=== PATIENT | male | born 1930 | race Caucasian/White ===

== ENCOUNTER 2017-06-17 11:43 | Inpatient (IN) | payer MEDICARE, OTHER ==
[~2017-06-17] VITALS: Ht 185.4 cm; Wt 95.0 kg
[2017-06-17 12:46] LABS: BASOPHILS % (AUTO) 0.5 % (0-1); EOSINOPHILS # (AUTO) 0.2 X10'3 (0-0.9); EOSINOPHILS % (AUTO) 3.4 % (0-6); HEMATOCRIT 42.1 % (42.0-52.0); HEMOGLOBIN 14.3 g/dl (14.0-17.9); LYMPHOCYTES # (AUTO) 0.7 X10'3 (1.1-4.8); LYMPHOCYTES % (AUTO) 13.1 % (21-51); MEAN CORPUSCULAR HEMOGLOBIN 35.6 PG (27.0-31.0); MEAN CORPUSCULAR HGB CONC 33.9 % (33.0-36.5); MEAN CORPUSCULAR VOLUME 105.2 FL (78-98); MEAN PLATELET VOLUME 7.2 FL (7.4-10.4); MONOCYTES # (AUTO) 0.5 X10'3 (0-0.9); MONOCYTES % (AUTO) 9.4 % (2-12); NEUTROPHILS # (AUTO) 3.9 X10'3 (1.8-7.7); NEUTROPHILS % (AUTO) 73.6 % (42-75); PLATELET COUNT 164 X10'3 (140-440); RED CELL DISTRIBUTION WIDTH 13.2 % (11.5-14.5); WHITE BLOOD COUNT 5.3 X10'3 (4.5-11.0)
[2017-06-17 12:57] LABS: PARTIAL THROMBOPLASTIN TIME 32 SECONDS (22-32); PROTHROMBIN TIME 10.3 SECONDS (9.0-12.0)
[2017-06-17 13:11] LABS: ALANINE AMINOTRANSFERASE 24 U/L (12-78); ALBUMIN 3.7 G/DL (3.4-5.0); ALBUMIN/GLOBULIN RATIO 1.1 (1.1-1.5); ALKALINE PHOSPHATASE 75 IU/L (46-116); ANION GAP 9 (8-16); ASPARTATE AMINO TRANSFERASE 26 U/L (10-37); BILIRUBIN,TOTAL 0.6 MG/DL (0.1-1.0); BLOOD UREA NITROGEN 24 MG/DL (7-18); CALCIUM 9.4 MG/DL (8.5-10.1); CHLORIDE 113 MMOL/L (99-107); CREATININE 1.26 MG/DL (0.60-1.10); GLUCOSE 88 MG/DL (70-104); MAGNESIUM 2.3 MG/DL (1.5-2.4); PHOSPHORUS 3.2 MG/DL (2.3-4.5); POTASSIUM 3.9 MMOL/L (3.5-5.1); SODIUM 151 MMOL/L (135-145); TOTAL CARBON DIOXIDE 29.3 MMOL/L (24-32); TOTAL PROTEIN 7.2 G/DL (6.4-8.2); eGFR 54 ML/MIN
[2017-06-17 13:19] LABS: ETHANOL < 0.010 GM/DL (0.0-0.010)
[2017-06-17] MEDS: normal saline 1000ml 1,000 ML IV SCH ×3 (13:28→20:32)
[2017-06-17] MEDS ORDERED: haloperidol 1mg tablet PO ONE (14:35)
[2017-06-17] MEDS ORDERED: CHLO25CA10 PO (14:37)
[2017-06-17] MEDS ORDERED: vancomycin inj 1,000 MG in normal saline 250ml IV soln 250 ML IV STA (16:18)
[2017-06-17] MEDS: vancomycin/NS 1 GM ADD-VANTAGE 250 ML IV SCH ×2 (16:35→16:43)
[2017-06-17] MEDS ORDERED: haloperidol lactate 5mg/ml inj IM ONE (16:55)
[2017-06-17 17:50] LABS: CLARITY,URINE CLEAR (Clear); COLOR,URINE YELLOW (Yellow); GLUCOSE, URINE NEGATIVE (Neg); KETONES,URINE 15 mg/dl (Neg); LEUKOCYTE ESTERASE ,URINE NEGATIVE (Neg); NITRITES, URINE NEGATIVE (Neg); OCCULT BLOOD,URINE NEGATIVE (Neg); PH,URINE 5.5 (4.8-8.0); PROTEIN,URINE NEGATIVE (Neg); UROBILINOGEN,URINE 0.2 E.U/dL (0.2-1.0)
[2017-06-17 17:51] LABS: UA COLLECTION TYPE STRAIGHT CATH
[2017-06-17] MEDS ORDERED: thiamine inj. 100 MG, MVI, adult No.4 with vit. K 10 ML in dextrose 5% water 500ml 489 ML IV SCH ×3 (18:35)
[2017-06-17] MEDS ORDERED: thiamine 100mg/ml 2ml inj. IV ONE (18:40)
[2017-06-17] MEDS ORDERED: thiamine inj. 100 MG, MVI, adult No.4 with vit. K 10 ML in dextrose 5% water 500ml 489 ML IV ONE ×3 (18:40)
[2017-06-17] MEDS ORDERED: magnesium hydroxide 30ml (MOM) UD suspension PO PRN (18:55)
[2017-06-17] MEDS ORDERED: aspirin 325mg tablet PO ONE (18:55)
[2017-06-17] MEDS ORDERED: ondansetron/PF 4mg/2ml inj IV PRN (18:55)
[2017-06-17] MEDS ORDERED: mag hydrox/Alum hydrox/simeth 30ml oral suspension PO PRN (18:55)
[2017-06-17] MEDS ORDERED: acetaminophen 325mg tablet PO PRN ×2 (18:55)
[2017-06-17 20:00] VITALS: BP 141/87
[2017-06-17] MEDS: folic acid 1mg tablet PO SCH (20:30)
[2017-06-17] MEDS ORDERED: LORazepam 2 mg/ml vial IV ONE ×3 (22:00→22:35)
[2017-06-18] VITALS: BP 142/79
[2017-06-18] MEDS: normal saline 1000ml 1,000 ML IV SCH ×3 (01:25→07:35)
[2017-06-18 02:04] LABS: ALBUMIN 3.2 G/DL (3.4-5.0); ANION GAP 8 (8-16); BLOOD UREA NITROGEN 22 MG/DL (7-18); BUN/CREATININE RATIO 22.7 (5.4-32.0); CALCIUM 8.3 MG/DL (8.5-10.1); CHLORIDE 114 MMOL/L (99-107); CREATININE 0.97 MG/DL (0.60-1.10); GLUCOSE 80 MG/DL (70-104); MAGNESIUM 1.8 MG/DL (1.5-2.4); POTASSIUM 3.1 MMOL/L (3.5-5.1); SODIUM 148 MMOL/L (135-145); TOTAL CARBON DIOXIDE 25.9 MMOL/L (24-32); eGFR 74 ML/MIN
[2017-06-18 02:13] LABS: BASOPHILS % (AUTO) 0.5 % (0-1); EOSINOPHILS # (AUTO) 0.2 X10'3 (0-0.9); EOSINOPHILS % (AUTO) 4.4 % (0-6); HEMATOCRIT 37.3 % (42.0-52.0); LYMPHOCYTES # (AUTO) 0.8 X10'3 (1.1-4.8); LYMPHOCYTES % (AUTO) 16.3 % (21-51); MEAN CORPUSCULAR HEMOGLOBIN 36.6 PG (27.0-31.0); MEAN CORPUSCULAR HGB CONC 34.9 % (33.0-36.5); MEAN CORPUSCULAR VOLUME 104.9 FL (78-98); MEAN PLATELET VOLUME 8.2 FL (7.4-10.4); MONOCYTES # (AUTO) 0.4 X10'3 (0-0.9); MONOCYTES % (AUTO) 8.5 % (2-12); NEUTROPHILS # (AUTO) 3.5 X10'3 (1.8-7.7); NEUTROPHILS % (AUTO) 70.3 % (42-75); PLATELET COUNT 143 X10'3 (140-440); RED BLOOD COUNT 3.56 X10'6 (4.70-6.10); RED CELL DISTRIBUTION WIDTH 12.5 % (11.5-14.5); WHITE BLOOD COUNT 4.9 X10'3 (4.5-11.0)
[2017-06-18] MEDS ORDERED: THIAMINE IV ONE ×2 (04:00→21:15)
[2017-06-18] MEDS ORDERED: NORMAL SALINE IV ONE (04:00)
[2017-06-18] MEDS ORDERED: thiamine 100mg/ml 2ml inj. IV ONE (04:00)
[2017-06-18] MEDS: folic acid 1mg tablet PO SCH (07:47)
[2017-06-18 08:00] VITALS: BP 137/77
[2017-06-18] MEDS ORDERED: multivitamins, therapeutics tablet PO SCH (08:00)
[2017-06-18 11:00] VITALS: BP 140/85
[2017-06-18] MEDS: dextrose 5%-1/4 normal saline 1,000 ML IV SCH ×2 (11:57→16:15)
[2017-06-18] MEDS ORDERED: [UNRECOGNIZED DRUG - REMARK] IV SCH ×4 (14:58)
[2017-06-18] MEDS ORDERED: magnesium 2GM in 50ml NS 50 ML IV PRN (15:00)
[2017-06-18] MEDS ORDERED: potassium Cl 20 mEq SR tablet PO PRN ×2 (15:00)
[2017-06-18] MEDS ORDERED: magnesium Cl slow-release 64mg tablet PO PRN (15:00)
[2017-06-18] MEDS: K and/or MAG REPLACEMENT MC SCH (15:00)
[2017-06-18] MEDS ORDERED: potassium Cl 40MEQ/NS 500ml 500 ML IV PRN (15:00)
[2017-06-18] MEDS ORDERED: magnesium 4gm in 100ml NS 100 ML IV PRN (15:00)
[2017-06-18 20:00] VITALS: BP 150/87
[2017-06-18] MEDS ORDERED: thiamine 100mg/ml 2ml inj. IM SCH (20:00)
[2017-06-18] MEDS ORDERED: WATER IV ONE (21:15)
[2017-06-18] MEDS ORDERED: DEXTROSE 5% IV ONE (21:15)
[2017-06-18] MEDS ORDERED: LORazepam 2 mg/ml vial IV PRN (23:20)
[2017-06-19 00:51] VITALS: BP 152/87
[2017-06-19] MEDS: dextrose 5%-1/4 normal saline 1,000 ML IV SCH ×3 (01:47→20:23)
[2017-06-19 06:09] LABS: BASOPHILS % (AUTO) 0.2 % (0-1); EOSINOPHILS # (AUTO) 0.1 X10'3 (0-0.9); EOSINOPHILS % (AUTO) 2.4 % (0-6); HEMATOCRIT 40.6 % (42.0-52.0); HEMOGLOBIN 13.8 g/dl (14.0-17.9); LYMPHOCYTES # (AUTO) 0.4 X10'3 (1.1-4.8); LYMPHOCYTES % (AUTO) 7.9 % (21-51); MEAN CORPUSCULAR HEMOGLOBIN 35.4 PG (27.0-31.0); MEAN CORPUSCULAR HGB CONC 33.9 % (33.0-36.5); MEAN CORPUSCULAR VOLUME 104.5 FL (78-98); MEAN PLATELET VOLUME 7.5 FL (7.4-10.4); MONOCYTES # (AUTO) 0.5 X10'3 (0-0.9); NEUTROPHILS # (AUTO) 4.6 X10'3 (1.8-7.7); NEUTROPHILS % (AUTO) 81.5 % (42-75); PLATELET COUNT 167 X10'3 (140-440); RED BLOOD COUNT 3.89 X10'6 (4.70-6.10); RED CELL DISTRIBUTION WIDTH 13.4 % (11.5-14.5); WHITE BLOOD COUNT 5.7 X10'3 (4.5-11.0)
[2017-06-19 07:18] VITALS: BP 144/86
[2017-06-19 07:24] LABS: ALBUMIN 3.2 G/DL (3.4-5.0); ANION GAP 11 (8-16); BLOOD UREA NITROGEN 12 MG/DL (7-18); BUN/CREATININE RATIO 10.2 (5.4-32.0); CALCIUM 8.5 MG/DL (8.5-10.1); CHLORIDE 114 MMOL/L (99-107); CREATININE 1.18 MG/DL (0.60-1.10); GLUCOSE 112 MG/DL (70-104); MAGNESIUM 1.8 MG/DL (1.5-2.4); SODIUM 150 MMOL/L (135-145); eGFR 59 ML/MIN
[2017-06-19] MEDS: K and/or MAG REPLACEMENT MC SCH (07:42)
[2017-06-19] MEDS ORDERED: THIAMINE IV SCH (08:00)
[2017-06-19] MEDS ORDERED: DEXTROSE 5% IV SCH (08:00)
[2017-06-19] MEDS ORDERED: WATER IV SCH (08:00)
[2017-06-19 11:48] VITALS: BP 122/76
[2017-06-19 12:41] LABS: ABG BASE EXCESS -0.7 mmol/L (-2.0-3.0); ABG HCO3 24.1 mmol/L (22.0-26.0); ABG OXYGEN SATURATION 92.8 % (95-98); ABG PCO2 (T) 40.1 mmHg (35.0-48.0); ABG PH (T) 7.396 (7.350-7.450); ABG PO2 (T) 63.6 mmHg (83-108); ALLEN'S TEST Positive; FCOHb 0.2 % (0.5-1.5); FLOW 4 L/min; FMetHb 0.1 % (0.3-1.12); FO2Hb 92.5 % (94-100); TOTAL HEMOGLOBIN 14.3 G/dl (14.0-18.0)
[2017-06-19] MEDS ORDERED: albuterol 2.5 MG/3 ML nebule NEB PRN (13:30)
[2017-06-19 18:00] VITALS: BP 137/73
[2017-06-19] MEDS: thiamine 100mg/ml 2ml inj. IM SCH (22:39)
[2017-06-20] VITALS: BP 127/71
[2017-06-20 06:30] LABS: BASOPHILS % (AUTO) 0.3 % (0-1); EOSINOPHILS # (AUTO) 0.1 X10'3 (0-0.9); EOSINOPHILS % (AUTO) 2.2 % (0-6); HEMATOCRIT 37.7 % (42.0-52.0); LYMPHOCYTES # (AUTO) 0.6 X10'3 (1.1-4.8); LYMPHOCYTES % (AUTO) 11.8 % (21-51); MEAN CORPUSCULAR HGB CONC 34.5 % (33.0-36.5); MEAN CORPUSCULAR VOLUME 104.3 FL (78-98); MEAN PLATELET VOLUME 7.9 FL (7.4-10.4); MONOCYTES # (AUTO) 0.5 X10'3 (0-0.9); MONOCYTES % (AUTO) 10.8 % (2-12); NEUTROPHILS # (AUTO) 3.6 X10'3 (1.8-7.7); NEUTROPHILS % (AUTO) 74.9 % (42-75); PLATELET COUNT 151 X10'3 (140-440); RED BLOOD COUNT 3.61 X10'6 (4.70-6.10); RED CELL DISTRIBUTION WIDTH 13.3 % (11.5-14.5); WHITE BLOOD COUNT 4.8 X10'3 (4.5-11.0)
[2017-06-20 06:41] LABS: ALBUMIN 2.8 G/DL (3.4-5.0); ANION GAP 7 (8-16); BLOOD UREA NITROGEN 13 MG/DL (7-18); BUN/CREATININE RATIO 10.3 (5.4-32.0); CALCIUM 8.1 MG/DL (8.5-10.1); CHLORIDE 109 MMOL/L (99-107); CREATININE 1.26 MG/DL (0.60-1.10); GLUCOSE 118 MG/DL (70-104); MAGNESIUM 1.7 MG/DL (1.5-2.4); SODIUM 143 MMOL/L (135-145); eGFR 54 ML/MIN
[2017-06-20 07:30] VITALS: BP 90/55
[2017-06-20] MEDS: thiamine 100mg/ml 2ml inj. IM SCH ×2 (07:34→20:56)
[2017-06-20] MEDS: potassium Cl 40MEQ/NS 500ml 500 ML IV PRN ×2 (07:34→12:02)
[2017-06-20] MEDS: K and/or MAG REPLACEMENT MC SCH (07:40)
[2017-06-20] MEDS: normal saline 1000ml 1,000 ML IV SCH ×2 (09:30→21:04)
[2017-06-20 11:54] VITALS: BP 100/63
[2017-06-20 14:41] LABS: ABG BASE EXCESS -3.2 mmol/L (-2.0-3.0); ABG HCO3 22.9 mmol/L (22.0-26.0); ABG OXYGEN SATURATION 97.5 % (95-98); ABG PH (T) 7.318 (7.350-7.450); ABG PO2 (T) 103.5 mmHg (83-108); ALLEN'S TEST Negative; FCOHb 0.4 % (0.5-1.5); FLOW 3 L/min; FMetHb 0.2 % (0.3-1.12); FO2Hb 96.9 % (94-100); PATIENT TEMPERATURE 37.5; TOTAL HEMOGLOBIN 14.3 G/dl (14.0-18.0)
[2017-06-20 18:00] VITALS: BP 147/87
[2017-06-20 23:00] VITALS: BP 142/76
[2017-06-21] MEDS: dextrose 5%-1/2 normal saline 1,000 ML IV SCH ×2 (00:33→13:59)
[2017-06-21 06:24] LABS: BASOPHILS % (AUTO) 0.3 % (0-1); EOSINOPHILS # (AUTO) 0.1 X10'3 (0-0.9); EOSINOPHILS % (AUTO) 1.5 % (0-6); HEMATOCRIT 39.7 % (42.0-52.0); HEMOGLOBIN 13.3 g/dl (14.0-17.9); LYMPHOCYTES # (AUTO) 0.5 X10'3 (1.1-4.8); LYMPHOCYTES % (AUTO) 11.2 % (21-51); MEAN CORPUSCULAR HEMOGLOBIN 35.7 PG (27.0-31.0); MEAN CORPUSCULAR HGB CONC 33.6 % (33.0-36.5); MEAN CORPUSCULAR VOLUME 106.4 FL (78-98); MEAN PLATELET VOLUME 8.1 FL (7.4-10.4); MONOCYTES # (AUTO) 0.5 X10'3 (0-0.9); MONOCYTES % (AUTO) 11.4 % (2-12); NEUTROPHILS # (AUTO) 3.3 X10'3 (1.8-7.7); NEUTROPHILS % (AUTO) 75.6 % (42-75); PLATELET COUNT 153 X10'3 (140-440); RED BLOOD COUNT 3.73 X10'6 (4.70-6.10); RED CELL DISTRIBUTION WIDTH 13.3 % (11.5-14.5); WHITE BLOOD COUNT 4.4 X10'3 (4.5-11.0)
[2017-06-21 06:59] LABS: ALBUMIN 2.6 G/DL (3.4-5.0); ANION GAP 6 (8-16); BLOOD UREA NITROGEN 15 MG/DL (7-18); BUN/CREATININE RATIO 12.9 (5.4-32.0); CALCIUM 8.5 MG/DL (8.5-10.1); CHLORIDE 112 MMOL/L (99-107); CREATININE 1.16 MG/DL (0.60-1.10); GLUCOSE 101 MG/DL (70-104); MAGNESIUM 1.9 MG/DL (1.5-2.4); POTASSIUM 3.7 MMOL/L (3.5-5.1); SODIUM 145 MMOL/L (135-145); TOTAL CARBON DIOXIDE 27.1 MMOL/L (24-32); eGFR 60 ML/MIN
[2017-06-21 07:00] VITALS: BP 149/72
[2017-06-21] MEDS: levoFLOXACIN-Levaquin 500mg/D5 100 ML IV SCH (07:48)
[2017-06-21] MEDS: thiamine 100mg/ml 2ml inj. IM SCH ×2 (07:48→22:51)
[2017-06-21] MEDS ORDERED: levoFLOXACIN 500mg tablet PO SCH (08:00)
[2017-06-21] MEDS: K and/or MAG REPLACEMENT MC SCH (08:00)
[2017-06-21 12:00] VITALS: BP 137/79
[2017-06-21 13:41] LABS: ABG BASE EXCESS -4.3 mmol/L (-2.0-3.0); ABG HCO3 23.5 mmol/L (22.0-26.0); ABG OXYGEN SATURATION 97.4 % (95-98); ABG PCO2 (T) 55.7 mmHg (35.0-48.0); ABG PH (T) 7.245 (7.350-7.450); ABG PO2 (T) 106.9 mmHg (83-108); FLOW 3 L/min; FMetHb 0.1 % (0.3-1.12); FO2Hb 97.3 % (94-100); PATIENT TEMPERATURE 37.5; TOTAL HEMOGLOBIN 13.6 G/dl (14.0-18.0)
[2017-06-21] MEDS ORDERED: enoxaparin 40mg/0.4ml syringe SUBCUT SCH (15:50)
[2017-06-21] MEDS ORDERED: potassium cl 20mEq in 1/2 NS 1,000 ML IV SCH (15:50)
[2017-06-21] MEDS: clindamycin 600mg/D5W 50ml 50 ML IV SCH ×2 (17:15→22:45)
[2017-06-21] MEDS ORDERED: LORazepam 2 mg/ml vial IV PRN (17:45)
[2017-06-21 19:00] VITALS: BP 123/61
[2017-06-21] MEDS: folic acid 1mg/0.2ml inj IV SCH (21:00)
[2017-06-22] MEDS: clindamycin 600mg/D5W 50ml 50 ML IV SCH ×4 (02:04→20:03)
[2017-06-22 07:00] VITALS: BP 122/64
[2017-06-22 07:14] VITALS: BP 122/64
[2017-06-22] MEDS ORDERED: LACTOBACILLUS RHAMNOSUS GG 15 billion unit sprinkle caps PO SCH (07:30)
[2017-06-22] MEDS: levoFLOXACIN-Levaquin 500mg/D5 100 ML IV SCH (09:06)
[2017-06-22] MEDS ORDERED: thiamine 100mg/ml 2ml inj. IV SCH (09:25)
[2017-06-22] MEDS: folic acid 1mg/0.2ml inj IV SCH (09:51)
[2017-06-22 19:00] VITALS: BP 142/70
[2017-06-22] MEDS: thiamine inj. 100 MG in normal saline 100ml IV soln 99 ML IV SCH (20:03)
[2017-06-23] MEDS: clindamycin 600mg/D5W 50ml 50 ML IV SCH ×4 (01:49→20:00)
[2017-06-23 07:25] VITALS: BP 142/68
[2017-06-23] MEDS: levoFLOXACIN-Levaquin 500mg/D5 100 ML IV SCH ×2 (08:00→08:45)
[2017-06-23] MEDS: folic acid 1mg/0.2ml inj IV SCH (09:04)
[2017-06-23] MEDS: thiamine inj. 100 MG in normal saline 100ml IV soln 99 ML IV SCH ×2 (09:04→20:00)
[2017-06-24 06:49] LABS: ALLEN'S TEST Positive
== END 2017-06-23 20:45 | disposition expired | DRG 56 ==
LOC: ER 11:45 → ED HOLD 18:52 → SUR 3N 19:30 → CMPBEDREQ 19:50 → PCU 3S 06-21 16:34
PROVIDERS: ADMIT Internal Medicine; ATTEND Internal Medicine
DX: G31.2 Degeneration of nervous system due to alcohol (principal); J69.0 Pneumonitis due to inhalation of food and vomit; J96.00 Acute respiratory failure, unspecified whether with hypoxia or hypercapnia; N17.9 Acute kidney failure, unspecified; E87.0 Hyperosmolality and hypernatremia; E87.2 Acidosis; F10.20 Alcohol dependence, uncomplicated; E16.2 Hypoglycemia, unspecified; Y90.0 Blood alcohol level of less than 20 mg/100 ml; R47.81 Slurred speech; E86.0 Dehydration; E87.6 Hypokalemia; Z51.5 Encounter for palliative care; Z66 Do not resuscitate; Z87.891 Personal history of nicotine dependence
CPT/HCPCS: 36415; 36600; 70450; 70551; 71045; 80048; 80053; 80178; 80320; 81003; 82140; 82803; 82948; 83605; 83735; 84100; 84132; 84443; 84484; 85018; 85025; 85610; 85730; 87040; 87070; 92616; 93005; 94760; 96372; 96374; 99285; A4353; A6213; J1630; J1956; J2060; J2270; J3370; J3411; J3480; J3490; J7030; J7060